=== PATIENT | male | born 1985 | race Caucasian/White ===

== ENCOUNTER → 2025-05-24 07:20 | Outpatient (REF) | payer OTHER, SELFPAY | LOC: RAD 07:20 | PROVIDERS: ATTENDING PHYSICIAN Radiology Diagnostic Radiology; FAMILY PHYSICIAN Physician Assistant Medical | DX: Z13.89 Encounter for screening for other disorder (principal) | CPT/HCPCS: 70030 ==

== ENCOUNTER → 2025-05-26 07:40 | Outpatient (REF) | payer OTHER, SELFPAY | LOC: MRI 3T 07:40 | PROVIDERS: ATTENDING PHYSICIAN Surgery; FAMILY PHYSICIAN Physician Assistant Medical | DX: M79.9 Soft tissue disorder, unspecified (principal) | CPT/HCPCS: 73220; A9575 ==